=== PATIENT | female | born 1950 | race Caucasian/White ===

== ENCOUNTER 2017-06-15 11:38 | Emergency (ER) | payer MEDICARE, OTHER ==
[2017-06-15] MEDS: ALBUTEROL 0.083% (NEB) 2.5 MG/3 ML AMP HHN (15:34)
[2017-06-15] MEDS: IPRATROPIUM (NEB) 0.5 MG/2.5 ML AMP HHN (15:34)
[2017-06-15] MEDS: DEXAMETHASONE 10 MG/ML 1 ML INJ IM (16:00)
== END 2017-06-15 17:19 | disposition home or self-care (01) ==
LOC: FTE 17:19 → E/R 11:38
DX: J18.9 Pneumonia, unspecified organism (principal); I10 Essential (primary) hypertension; Z91.040 Latex allergy status
CPT/HCPCS: 71045; 94664; 96372; 99284-25

== ENCOUNTER 2017-07-12 03:55 | Emergency (ER) | payer MEDICARE, OTHER ==
[2017-07-12 05:56] LABS: ADD MAN DIFF? NO
[2017-07-12 05:59] LABS: WHITE BLOOD COUNT 7.4 10^3/ul (4.8-10.8)
[2017-07-12 05:59] LABS: BASOPHILS % 0.4 % (0.0-2.0); EOSINOPHILS % 0.3 % (0.0-7.0); HEMOGLOBIN 13.5 g/dl (12.0-16.0); LYMPHOCYTES # 1.2 10^3/ul (0.8-2.9); LYMPHOCYTES % 15.7 % (15.0-51.0); MEAN CORPUSCULAR HEMOGLOBIN 32.8 pg (29.0-33.0); MEAN CORPUSCULAR HGB CONC 35.5 g/dl (32.0-37.0); MEAN CORPUSCULAR VOLUME 92.2 fl (82.0-101.0); MONOCYTE # 0.6 10^3/ul (0.3-0.9); MONOCYTES % 7.4 % (0.0-11.0); NEUTROPHIL # 5.6 10^3/ul (1.6-7.5); NEUTROPHILS % 75.9 % (39.0-77.0); PLATELET COUNT 163 10^3/UL (140-415); RED BLOOD COUNT 4.12 10^6/ul (4.20-5.40); RED CELL DISTRIBUTION WIDTH 13.3 % (11.5-14.5)
[2017-07-12 06:15] LABS: INR 0.99; PROTIME 13.2 Sec (11.9-14.9)
[2017-07-12 06:16] LABS: PARTIAL THROMBOPLASTIN TIME 36.9 Sec (25.0-35.0)
[2017-07-12 06:19] LABS: ANION GAP 12 (8-16); BLOOD UREA NITROGEN 11 mg/dl (7-20); CALCIUM 8.6 mg/dl (8.4-10.2); CARBON DIOXIDE 26 mmol/L (21-31); CHLORIDE 96 mmol/L (97-110); CREATININE 0.44 mg/dl (0.44-1.00); GLUCOSE 128 mg/dl (70-220); POTASSIUM 3.6 mmol/L (3.5-5.1); SODIUM 130 mmol/L (135-144)
[2017-07-12 06:38] LABS: TROPONIN-I < 0.012 ng/ml (0.00-0.12)
[2017-07-12] MEDS: SOD CHLORIDE 0.9% 250 ML IV (06:56)
[2017-07-12] MEDS: ONDANSETRON 4 MG INJ IV (06:57)
[2017-07-12] MEDS: morphine 2 MG INJ IV (06:57)
[2017-07-12] MEDS: KETOROLAC 15 MG INJ IV (07:44)
[2017-07-12 08:13] LABS: URINE BLOOD (Dip) POC Trace-lysed (NEGATIVE); URINE GLUCOSE (Dip) POC Negative (NEGATIVE); URINE KETONES (Dip) POC Trace (NEGATIVE); URINE LEUKOCYTE EST (Dip) POC Trace (NEGATIVE); URINE NITRITE (Dip) POC Negative (NEGATIVE); URINE TOTAL PROTEIN POC Negative (NEGATIVE)
== END 2017-07-12 08:39 | disposition home or self-care (01) ==
LOC: E/R 03:55
DX: I10 Essential (primary) hypertension (principal); R51 Headache; F41.9 Anxiety disorder, unspecified; E87.1 Hypo-osmolality and hyponatremia; N39.0 Urinary tract infection, site not specified; R40.2252 Coma scale, best verbal response, oriented, at arrival to emergency department; R40.2142 Coma scale, eyes open, spontaneous, at arrival to emergency department; R40.2362 Coma scale, best motor response, obeys commands, at arrival to emergency department; R06.02 Shortness of breath
CPT/HCPCS: 36415; 70450; 71045; 80048; 81003; 84484; 85025; 85610; 85730; 93005; 96374; 96375; 99285-25